=== PATIENT | male | born 1950 | race Caucasian/White ===

== ENCOUNTER 2020-01-05 18:12 | Outpatient (REF) | payer OTHER, SELFPAY ==
[2020-01-08 17:41] LABS: SARS-CoV-2 RNA Undetected (Undetected); SARS-CoV-2 Specimen Source Nasal
== END 2020-01-05 18:32 ==
LOC: NCHCN 18:12
PROVIDERS: PCP Internal Medicine; Visit Provider Nurse Practitioner Family
DX: J06.9 Acute upper respiratory infection, unspecified (principal)
CPT/HCPCS: U0003

== ENCOUNTER 2021-11-22 09:09 | Outpatient (REF) | payer MEDICARE, SELFPAY ==
[2021-11-22 16:05] LABS: Anion Gap 11.6 mmol/L (3-11); BUN 15 mg/dL (7-18); CO2 26.4 mmol/L (21.0-32.0); CREATININE 0.8 mg/dL (0.70-1.30); Calcium 9.3 mg/dL (8.5-10.1); Calculated LDL 98 mg/dL (<100); Chloride 103 mmol/L (98-107); Cholesterol 202 mg/dL (<200); Estimated GFR 94.62 (mL/min/1.73m2); Glucose 79 mg/dL (74-106); HDL Cholesterol 82 mg/dL (40-60); Potassium 4.2 mmol/L (3.5-5.1); Sodium 141 mmol/L (136-145); Triglyceride 113 mg/dL (<150)
== END 2021-11-22 09:10 | disposition home or self-care (01) ==
LOC: NCHCN 09:09
PROVIDERS: PCP Internal Medicine; Visit Provider Family Medicine
DX: Z00.00 Encounter for general adult medical examination without abnormal findings (principal); Z13.220 Encounter for screening for lipoid disorders
CPT/HCPCS: 80048; 80061

== ENCOUNTER 2022-04-28 09:36 | Outpatient (REF) | payer MEDICARE, SELFPAY ==
--- NOTE | 2022-04-28 09:00 | SKI_PTH ---
PATIENT: Yaya Navarrete LOC: [facility]#:[id number] AGE/SX: 71/M ROOM: RE04/28/[address]: Doug Shelley : 1950 BED: DIS: 04/28/2022 SPEC #: [id number] RECD: 04/28/22 16:17 STATUS: COURTNEY REQ #: [id number] SEEMA: 04/28/22 09:[address]: Doug Shelley DEPT: Surgical Specimen RECD BY: Hannah Campos ENTERED: 04/28/22 16:19 SP TYPE: SKI OT DR: Yves Martinez Tissues: 1 - SKIN BIOPSY(SHAVE/PUNCH) Procedures: SKIN LEVEL 4 Comments: [id number]
== END 2022-04-28 09:37 | disposition home or self-care (01) ==
LOC: NCHCN 09:36
PROVIDERS: PCP Internal Medicine; Visit Provider Family Medicine
DX: K13.29 Other disturbances of oral epithelium, including tongue (principal)
CPT/HCPCS: 88305

== ENCOUNTER 2022-11-28 18:21 | Outpatient (REF) | payer MEDICARE, SELFPAY ==
[2022-11-28 15:17] LABS: Anion Gap 8.7 mmol/L (3-11); BUN 15 mg/dL (7-18); CO2 27.3 mmol/L (21.0-32.0); CREATININE 0.9 mg/dL (0.70-1.30); Calcium 9.5 mg/dL (8.5-10.1); Calculated LDL 112 mg/dL (<100); Chloride 106 mmol/L (98-107); Cholesterol 203 mg/dL (<200); Estimated GFR 90.74 (mL/min/1.73m2); Glucose 95 mg/dL (74-106); HDL Cholesterol 79 mg/dL (40-60); Potassium 4.5 mmol/L (3.5-5.1); Sodium 142 mmol/L (136-145); Triglyceride 60 mg/dL (<150)
== END 2022-11-28 18:22 | disposition home or self-care (01) ==
LOC: NCHCN 18:21
PROVIDERS: PCP Internal Medicine; Visit Provider Family Medicine
DX: Z00.00 Encounter for general adult medical examination without abnormal findings (principal); Z13.220 Encounter for screening for lipoid disorders
CPT/HCPCS: 80048; 80061

== ENCOUNTER 2023-12-04 10:12 | Outpatient (REF) | payer MEDICARE, SELFPAY ==
[2023-12-04 14:36] LABS: Anion Gap 12.6 mmol/L (3-11); BUN 13 mg/dL (7-18); CO2 26.4 mmol/L (21.0-32.0); Calcium 9.3 mg/dL (8.5-10.1); Calculated LDL 110 mg/dL (<100); Chloride 107 mmol/L (98-107); Cholesterol 205 mg/dL (<200); Estimated GFR 79.47 (mL/min/1.73m2); Glucose 91 mg/dL (74-106); HDL Cholesterol 80 mg/dL (40-60); Potassium 4.2 mmol/L (3.5-5.1); Sodium 146 mmol/L (136-145); Triglyceride 75 mg/dL (<150)
== END 2023-12-04 10:13 | disposition home or self-care (01) ==
LOC: NCHCN 10:12
PROVIDERS: PCP Internal Medicine; Visit Provider Family Medicine
DX: Z13.220 Encounter for screening for lipoid disorders (principal); Z00.00 Encounter for general adult medical examination without abnormal findings
CPT/HCPCS: 80048; 80061

== ENCOUNTER 2025-01-19 10:57 | Outpatient (REF) | payer MEDICARE, SELFPAY ==
[2025-01-19 15:25] LABS: Anion Gap 7.1 mmol/L (3-11); BUN 14 mg/dL (9-23); CO2 27.9 mmol/L (20.0-31.0); Calcium 8.9 mg/dL (8.3-10.6); Chloride 106 mmol/L (98-107); Cholesterol 182 mg/dL (<200); Glucose 82 mg/dL (74-106); HDL Cholesterol 62 mg/dL (>40); Potassium 4.2 mmol/L (3.5-5.1); Sodium 141 mmol/L (136-145)
== END 2025-01-19 10:58 | disposition home or self-care (01) ==
LOC: NCHCN 10:57
PROVIDERS: PCP Internal Medicine; Visit Provider Family Medicine
DX: Z00.00 Encounter for general adult medical examination without abnormal findings (principal); Z13.220 Encounter for screening for lipoid disorders
CPT/HCPCS: 80048; 80061